=== PATIENT | female | born 1995 | race Caucasian/White ===

== ENCOUNTER 2016-08-02 18:30 | Emergency (ER) | payer SELFPAY ==
[~2016-08-02] VITALS: Wt 54.7 kg
[~2016-08-02 18:30] MED LIST: DAILY VALUE1 EACH PO; GLUCOSE4 G1; IBU800 M1 PO; ORPHENADRINE C100 MG PO; ULTRAM 50MG TAB50 MG PO; VITAMIN D400 UNI1; ZOFRAN ODT8 M1 PO
[2016-08-02] MEDS ORDERED: MUSCLE RELAXER (18:40)
[2016-08-02] MEDS ORDERED: CLINDAMYCIN 300MG PO (19:53)
[2016-08-02] MEDS ORDERED: BACTRIM DS TAB1 EACH PO (19:53)
[2016-08-02 20:02] VITALS: BP 107/57
== END 2016-08-02 20:02 | disposition home or self-care (01) ==
LOC: ED 18:30
DX: S91.052A Open bite, left ankle, initial encounter (principal); W54.0XXA Bitten by dog, initial encounter; Y92.009 Unspecified place in unspecified non-institutional (private) residence as the place of occurrence of the external cause

== ENCOUNTER 2016-09-23 20:39 | Emergency (ER) | payer SELFPAY ==
[~2016-09-23] VITALS: Ht 170.2 cm; Wt 54.5 kg
[~2016-09-23 20:39] MED LIST changes: +BACTRIM DS TAB1 EACH PO; +CLINDAMYCIN 300MG PO; +MUSCLE RELAXER
[2016-09-24] MEDS ORDERED: ONDANSETRON HYDR4 M1 PO (00:01)
[2016-09-24 00:21] VITALS: BP 135/80
== END 2016-09-24 00:21 | disposition home or self-care (01) ==
LOC: ED 20:39
DX: I95.1 Orthostatic hypotension (principal); E86.9 Volume depletion, unspecified; R11.2 Nausea with vomiting, unspecified; R19.7 Diarrhea, unspecified
CPT/HCPCS: J1885; J2405; J7030

== ENCOUNTER → 2016-09-27 | Outpatient (CLI) | payer SELFPAY ==
[2016-09-24 00:21] VITALS: BP 135/80
[~2016-09-27] MED LIST changes: +ONDANSETRON HYDR4 M1 PO
== END ==
LOC: LAB 09:41
DX: R19.7 Diarrhea, unspecified (principal); R53.81 Other malaise